=== PATIENT | female | born 1975 | race Caucasian/White ===

== ENCOUNTER 2017-10-03 21:30 | Observation (INO) ==
[2017-10-03 22:33] LABS: Basophils # 0.1 K/mcL (0.0-0.2); Basophils % 0.6 %; Eosinophils # 0.4 K/mcL (0.0-0.6); Eosinophils % 3.5 %; Hematocrit 40.9 % (35.3-44.9); Hemoglobin 14.5 g/dL (11.5-15.4); Immature Granulocytes % 0.4 % (0-4); Lymphocytes # 3.8 K/mcL (0.6-4.6); Lymphocytes % 29.9 %; Mean Corpuscular HGB Conc 35.5 g/dL (31.6-35.5); Mean Corpuscular Volume 90.3 fL (83.0-100.0); Mean Platelet Volume 10.7 fL (9.4-12.4); Monocytes # 0.9 K/mcL (0.0-1.3); Neutrophils # 7.4 K/mcL (1.6-8.9); Platelet Count 237 K/mcL (140-400); Red Blood Count 4.53 M/mcL (3.82-4.97); Red Cell Distribution Width 12.9 % (11.5-14.5); Segmented Neutrophils % 58.6 %
[2017-10-03 22:34] LABS: Bilirubin,Urine Negative (Negative); Blood,Urine Negative (Negative); Clarity,Urine Clear (Clear); Color,Urine Yellow (Yellow); Glucose,Urine (UA) Normal (Normal); Ketones,Urine Negative (Negative); Leukocyte Esterase,Urine Negative (Negative); Nitrite,Urine Negative (Negative); PH,Urine 6.5 pH Units (5.0-8.0); Protein,Urine Negative (Neg-Trace); Specific Gravity,Urine 1.027 (1.010-1.025); Urobilinogen,Urine Normal (Normal)
[2017-10-03 22:42] LABS: Alanine Aminotransferase 15 Units/L (7-52); Albumin 3.9 g/dL (3.5-5.7); Albumin/Globulin Ratio 1.6 (1.1-2.2); Alkaline Phosphatase 44 Units/L (34-104); Aspartate Amino Transferase 11 Units/L (13-39); BUN/Creatinine Ratio 23 (6-26); Bilirubin,Indirect 0.3 mg/dL (0.0-1.2); Bilirubin,Total 0.3 mg/dL (0.3-1.0); Blood Urea Nitrogen 17 mg/dL (6-20); Carbon Dioxide 26 mEq/L (23-29); Chloride 109 mEq/L (98-107); Globulin 2.4 g/dL (2.4-3.5); Glucose 93 mg/dL (70-105); Lipase 24 Units/L (11-82); Osmolality,Calculated 293 (280-300); Potassium 4.2 mEq/L (3.5-5.1); Sodium 141 mEq/L (136-145); Total Protein 6.3 g/dL (6.4-8.9); eGFR For African Americans > 60 (> 60); eGFR For Non-African Americans > 60 (> 60)
[2017-10-03] MEDS ORDERED: Isovue-370 500 ML INFUS..BTL IV ONE (22:51)
--- NOTE | 2017-10-03 22:55 | Emergency Department Note ---
Disposition Clinical Impression: Abdominal pain Disposition: Still a Patient Condition: Fair Referrals: Zoran Hadley, DECATOR OPERATOR [Primary Care Provider] - Abdominal Pain HPI - General Chief Complaint: ED Abdominal Pain Stated Complaint: Abdominal pain Time Seen by Provider: 10/03/17 21:40 Source: patient Mode of arrival: ambulatory Limitations: no limitations Nursing Notes Reviewed: Yes Vital Signs Reviewed: Yes - History of Present Illness HPI Narrative: 42-year-old female presents emergency Department with concerns of suprapubic and right lower quadrant abdominal pain. Patient states symptoms started within the past few days and have progressively worsened. Patient reports feeling nausea but has not had vomiting or diarrhea. She denies hematemesis, hematochezia or melena. No history of diverticulitis or colitis. No recent trauma. No changes in medications. No history of dysuria or hematuria. Denies vaginal bleeding or vaginal discharge. Patient is sexually active with one person and had last menstrual period 2 weeks ago. Pain Scale: 6 - Related Data Home Medications Medication Instructions Recorded Confirmed hydroCHLOROthiazide 12.5 mg PO QAM 11/16/15 04/15/16 [Hydrochlorothiazide] Previous Rx's Medication Instructions Recorded Amoxicillin/Clavulanate [Augmentin] 875 mg PO BID #20 tablet 05/23/16 Fexofenadine/Pseudoephedrine 1 each PO BID #8 tab.er.12h 05/23/16 [Nellie-D 12 Hour Tablet] Fluticasone Propionate Nasal 2 spray NS DAILY #1 bottle 05/23/16 [Flonase] Naproxen [Naprosyn] 500 mg PO BID #12 tablet 11/15/16 Allergies Allergy/AdvReac Type Severity Reaction Status Date / Time atorvastatin [From Lipitor] Allergy Muscle Pain Verified 11/15/16 16:15 levofloxacin [From Levaquin] Allergy Hives Verified 11/15/16 16:15 All systems ED: reviewed and negative except as stated. Review of Systems: As Per HPI Abdominal Pain PMH - Past Medical History Medical history: Reports: hyperlipidemia, hypertension Female Surgical History: Reports: sinus surgery PEST TECHNICIAN history: Reports: bilateral tubal ligation Psychiatric history: Reports: no psych history - Social History Smoking status: Current every day smoker Alcohol use: Reports: none Drug use: Reports: none Physical Exam General: Alert and in no acute distress Skin: Warm, dry, intact Head: Normocephalic and atraumatic Neck: Supple, trachea midline and no tenderness Cardiovascular: RRR, no murmur, normal perfusion Respiratory: CTAB, no wheezing, cough, or respiratory distress Musculoskeletal: Normal strength, no tenderness, swelling or deformity GI: Soft, moderate tenderness to palpation to the suprapubic region and the bilateral lower abdomen. No evidence of rigidity, guarding, or rebound nondistended. Bowel sounds present Neuro: A&O to person, place, time and situation. No focal deficits noted on exam Psychiatric: cooperative and appropriate mood and affect. - General Limitations: no limitations General appearance: alert, appears intoxicated Course Vital Signs Temperature 98.0 F 10/03/17 21:31 Pulse Rate 89 10/03/17 21:31 Respiratory Rate 16 10/03/17 21:31 Blood Pressure 142/99 10/03/17 21:31 O2 Sat by Pulse Oximetry 97 10/03/17 21:31 Temperature 98.0 F 10/03/17 21:53 Pulse Rate 85 10/03/17 22:23 Respiratory Rate 18 10/03/17 22:23 Blood Pressure 139/95 10/03/17 22:23 O2 Sat by Pulse Oximetry 99 10/03/17 22:23 Oxygen Delivery Oxygen Delivery Room Air Abdominal Pain - MDM Narrative Medical decision making narrative: Laboratory evaluation largely within normal limits other than a mild leukocytosis. Patient does not have a urinary tract infection or significant amount of blood in her urine. CT of the abdomen and pelvis obtained to evaluate for possible colitis versus appendicitis. Patient care will be transferred to Dr. Jarrett pending further care and evaluation, imaging, and disposition - Medical Records Medical records reviewed: Yes I reviewed the patient's medical records. - Lab Data Lab results reviewed: Yes I reviewed the patient's lab results. Result diagrams: 10/03/17 22:12 10/03/17 22:12 Lab Results 10/03/17 10/03/17 10/03/17 Range/Units 21:48 22:12 22:12 WBC 12.7 H (4.3-11.1) K/mcL RBC 4.53 (3.82-4.97) M/mcL Hgb 14.5 (11.5-15.4) g/dL Hct 40.9 (35.3-44.9) % MCV 90.3 (83.0-100.0) fL MCH 32.0 (28.0-33.3) pg MCHC 35.5 (31.6-35.5) g/dL RDW 12.9 (11.5-14.5) % Plt Count 237 (140-400) K/mcL MPV 10.7 (9.4-12.4) fL Immature Gran % 0.4 (0-4) % Seg Neutrophils % 58.6 % Lymphocytes % 29.9 % Monocytes % 7.0 % Eosinophils % 3.5 % Basophils % 0.6 % Neutrophils # 7.4 (1.6-8.9) K/mcL Lymphocytes # 3.8 (0.6-4.6) K/mcL Monocytes # 0.9 (0.0-1.3) K/mcL Eosinophils # 0.4 (0.0-0.6) K/mcL Basophils # 0.1 (0.0-0.2) K/mcL Sodium 141 (136-145) mEq/L Potassium 4.2 (3.5-5.1) mEq/L Chloride 109 H (98-107) mEq/L Carbon Dioxide 26 (23-29) mEq/L BUN 17 (6-20) mg/dL Creatinine 0.73 (0.60-1.20) mg/dL Est GFR ( Amer) > 60 (> 60) Est GFR (Non-Af Amer) > 60 (> 60) BUN/Creatinine Ratio 23 (6-26) Glucose 93 (70-105) mg/dL Calculated Osmolality 293 (280-300) Calcium 9.0 (8.6-10.3) mg/dL Total Bilirubin 0.3 (0.3-1.0) mg/dL Direct Bilirubin 0.0 (0.0-0.2) mg/dL Indirect Bilirubin 0.3 (0.0-1.2) mg/dL AST 11 L (13-39) Units/L ALT 15 (7-52) Units/L Alkaline Phosphatase 44 (34-104) Units/L Serum Total Protein 6.3 L (6.4-8.9) g/dL Albumin 3.9 (3.5-5.7) g/dL Globulin 2.4 (2.4-3.5) g/dL Albumin/Globulin Ratio 1.6 (1.1-2.2) Lipase 24 (11-82) Units/L Urine Color Yellow (Yellow) Urine Clarity Clear (Clear) Urine pH 6.5 (5.0-8.0) pH Units Ur Specific [place] 1.027 H (1.010-1.025) Urine Protein Negative (Neg-Trace) mg/dL Urine Glucose (UA) Normal (Normal) mg/dL Urine Ketones Negative (Negative) mg/dL Urine Blood Negative (Negative) Urine Nitrite Negative (Negative) Urine Bilirubin Negative (Negative) Urine Urobilinogen Normal (Normal) mg/dL Ur Leukocyte Esterase Negative (Negative) Ur Culture Indicated? NO (NO) - Radiology Data Radiology results reviewed: Yes I reviewed the patient's radiology results.
[2017-10-04] MEDS ORDERED: *HR* Morphine Immed Rel 30 MG TABLET PO ONE (01:20)
[2017-10-04] MEDS ORDERED: *HR* HYDROcodone/Acet 5/325 mg TABLET PO ONE (01:29)
[2017-10-04] MEDS ORDERED: Gadolinium Contrast Agent (WT Based) IV PRN (01:29)
[2017-10-04] MEDS ORDERED: 0.9 % Sodium Chloride 1,000 ML IVC SCH (01:30)
[2017-10-04] MEDS ORDERED: Acetaminophen 325 MG TABLET PO PRN (04:03)
[2017-10-04] MEDS ORDERED: Naloxone 0.4 MG/ML INJ IVP PRN (04:03)
[2017-10-04] MEDS ORDERED: Ondansetron 4 MG/2 ML VIAL IVP PRN (04:10)
[2017-10-04] MEDS ORDERED: Pantoprazole 40 MG VIAL IVP SCH (04:12)
--- NOTE | 2017-10-04 04:33 | Internal Med History&Physical ---
Date of Encounter: 10/04/17 Time of Encounter: 04:21 Internal Medicine - H&P: HPI Chief complaint: "Abdominal pain" Admitted From: Emergency Dept Plans for Post Hospital Care: Home History of present illness: Ms. Aguiar is a 42 year old female who presented to ED with abdominal pain. She states that the pain started a few days ago, but was worst today. She states that pain is located in RLQ and LLQ, near pelvis. The pain does not radiate anywhere. It is better sitting still; worse with palpation. She never had abdominal pain like this before. She denies fever, chills, chest pain, and SOB. Last CT was done about 6 months ago and showed some liver lesions and left adnexal lesion. Those lesions are more prominent on today's CT scan. Patient agreed to be admitted for workup of imaging findings and pain control. Pain relief was achieved in the ED with norco. She does not strong pain medicine. She states pain is better than when she came to ED. She is in no distress and has no complaints at this time. Past Med Surg Social Fam HX - Past Medical History Attestation: Yes The following information was validated with the patient. Medical history: hyperlipidemia, hypertension Psychiatric history: no psych history - Past Surgical History Surgical History: breast surgery - Social History Smoking Status: Current every day smoker Smokeless Tobacco Status: No Alcohol use: none Drug use: none - Additional Family History Additional family history: No family history per patient. Internal Medicine - H&P: Meds hydroCHLOROthiazide [Hydrochlorothiazide] 12.5 mg PO QAM 11/16/15 [History] Amoxicillin/Clavulanate [Augmentin] 875 mg PO BID #20 tablet 05/23/16 [Rx] Fexofenadine/Pseudoephedrine [Nellie-D 12 Hour Tablet] 1 each PO BID #8 tab.er.12h 05/23/16 [Rx] Fluticasone Propionate Nasal [Flonase] 2 spray NS DAILY #1 bottle 05/23/16 [Rx] Naproxen [Naprosyn] 500 mg PO BID #12 tablet 11/15/16 [Rx] 3 Allergy/AdvReac Type Severity Reaction Status Date / Time atorvastatin [From Lipitor] Allergy Muscle Pain Verified 11/15/16 16:15 levofloxacin [From Levaquin] Allergy Hives Verified 11/15/16 16:15 All Systems PM: A 10-system review of systems was performed and is negative for pertinent findings except as documented above in the HPI. - Constitutional Vitals: Temp Pulse Resp BP Pulse Ox 98.2 F 71 14 139/82 97 10/04/17 03:11 10/04/17 03:11 10/04/17 03:11 10/04/17 03:11 10/04/17 03:11 General appearance: Present: cooperative, mild distress (Due to adominal pain), A&O X 3, pleasant, answers questions appropriately - Head Head exam: Present: atraumatic, normal inspection, normocephalic - Eye Eye exam: Present: EOMI, normal appearance, PERRL. Absent: conjunctival injection, nystagmus, scleral icterus - ENT ENT exam: Present: mucous membranes moist, normal external ear exam, normal oropharynx - Neck Neck exam general surgery: Present: supple, trachea midline. Absent: lymphadenopathy, tenderness, thyromegaly - Respiratory Respiratory exam: Present: CTAB. Absent: accessory muscle use, rales, rhonchi, wheezes Additional comments: Normal WOB - Cardiovascular Cardiovascular exam: Present: RRR, +S1, +S2. Absent: diastolic murmur, gallop, rubs, systolic murmur - GI/Abdominal GI/Abdominal exam: Present: normal bowel sounds, soft. Absent: distended, guarding, mass, rebound - Extremities Exam Extremities exam: Present: full ROM, normal capillary refill, normal inspection. Absent: joint swelling, pedal edema, tenderness - Back Exam Back exam: Absent: CVA tenderness (L), CVA tenderness (R) - Neurological Exam Neurological exam: Present: abnormal gait, alert, CN II-XII intact, oriented X3 , strengths equal and symetr throughout. Absent: motor sensory deficit, no focal deficits, facial droop, speech deficit - Psychiatric Psychiatric exam: Present: normal affect, normal mood. Absent: agitated, anxious, depressed - Skin Skin exam: Present: dry, intact, warm. Absent: cyanosis, rash Internal Med - H&P Results - Labs CBC & Chem 7: 10/03/17 22:12 10/03/17 22:12 - Assessment and plan (1) Abdominal pain Current Visit: Yes Status: Acute Assessment and plan: Admit for observation and pain control. Keep NPO for now. Per patient's preference, we will use norco 5 mg Q6H PRN severe pain instead of IV opioids. Use zofran IV for nausea/vomiting control. Will order MRI liver to work up liver lesions. Consider GI consult based on MRI results. Will order pelvic ultrasound for left adnexal lesion. Consider COLLATOR HAND consult based on U/S results. After testing and possible consults are done, consider starting and advancing diet. Start protonix 40 mg IV QD for GI prophylaxis. Will keep on IV NS while NPO. She has history of chronic constipation for which she uses senna but she had large BM today; will maintain her bowel regimen with senna/ docusate since on opioids now. Will add PRN miralax. Qualifiers: Abdominal location: lower abdomen, unspecified Qualified Code(s): R10.30 - Lower abdominal pain, unspecified (2) Adnexal pain Current Visit: Yes Status: Acute Assessment and plan: Management as per above. (3) Liver lesion Current Visit: Yes Status: Acute Assessment and plan: Management as per above. (4) Nausea Current Visit: Yes Status: Acute Assessment and plan: Management as per above. (5) Chronic constipation Current Visit: Yes Status: Chronic Assessment and plan: Management as per above. (6) DVT prophylaxis Current Visit: Yes Status: Acute Assessment and plan: Start lovenox 40 mg SQ QD. - Time Spent With Patient Total time spent is greater than 50% in coordination of care (as documented) at patient's floor/unit and/or counseling patient: less than 15 minutes
[2017-10-04] MEDS: 0.9 % Sodium Chloride 1,000 ML IVC SCH ×2 (04:58→16:26)
[2017-10-04] MEDS: *HR* HYDROcodone/Acet 5/325 mg TABLET PO PRN ×2 (05:00→14:52)
[2017-10-04] MEDS ORDERED: *HR* Enoxaparin 40 MG/0.4 ML SYRINGE SQ SCH (06:00)
--- NOTE | 2017-10-04 06:15 | Emergency Department Note ---
START Narrative - START START: Received patient is sign out, ongoing abd pain, findings of pelvic as well as liver lesion, will admit for liver MRI and pelvic ultrasound as well as pain control.
[2017-10-04] MEDS ORDERED: Sennosides/Docusate Sodium TABLET PO SCH (09:00)
[2017-10-04] MEDS ORDERED: GADOXETATE DISODIUM 2.5 MMOL/10 ML VIAL IV ONE (11:16)
--- NOTE | 2017-10-04 13:24 | Internal Med Progress Note ---
Date of Encounter: 10/04/17 Time of Encounter: 13:22 - Assessment and plan (1) Abdominal pain Current Visit: Yes Status: Acute Assessment and plan: Admit for observation and pain control. Keep NPO for now. Per patient's preference, we will use norco 5 mg Q6H PRN severe pain instead of IV opioids. Use zofran IV for nausea/vomiting control. Will order MRI liver to work up liver lesions. Consider GI consult based on MRI results. Will order pelvic ultrasound for left adnexal lesion. Continue protonix 40 mg IV QD for GI prophylaxis. Will keep on IV NS while NPO. She has history of chronic constipation for which she uses senna but she had large BM today; will maintain her bowel regimen with senna/docusate add prn miralax. Will add PRN miralax. Patient states she has PCOS which could be contributing to symptoms. NPO until ultrasound Advance diet after ultrasound If ultrasound has positive findings, will consulted Gynecology. Qualifiers: Abdominal location: lower abdomen, unspecified Qualified Code(s): R10.30 - Lower abdominal pain, unspecified (2) Adnexal pain Current Visit: Yes Status: Acute Assessment and plan: Management as per above. (3) Nausea Current Visit: Yes Status: Acute Assessment and plan: Currently resolved (4) Liver lesion Current Visit: Yes Status: Acute Assessment and plan: MRI shows liver lesions noted to likely be cysts. Suggest OP follow-up. Patient has no RUQ symptoms. (5) DVT prophylaxis Current Visit: Yes Status: Acute Assessment and plan: Start lovenox 40 mg SQ QD. (6) Chronic constipation Current Visit: Yes Status: Chronic Assessment and plan: Continue medications - Time Spent With Patient Total time spent is greater than 50% in coordination of care (as documented) at patient's floor/unit and/or counseling patient: - Subjective Interval history: No acute events. Abdominal pain is now 4/10 only located in RLQ and LLQ. Denies fevers/chills, n/v. Appetite is good pt wants to eat. - Constitutional Vitals: Temp Pulse Resp BP Pulse Ox 98.2 F 58 16 133/74 98 10/04/17 11:27 10/04/17 11:27 10/04/17 11:27 10/04/17 11:27 10/04/17 11:27 General appearance: Present: cooperative, mild distress (Due to adominal pain), A&O X 3, pleasant, answers questions appropriately - Head Head exam: Present: atraumatic, normocephalic - Eye Eye exam: Present: PERRL, conjuntiva pink, sclera anicteric Pupils: Present: PERRL - Neck Neck exam general surgery: Present: supple, trachea midline. Absent: lymphadenopathy - Respiratory Respiratory exam: Present: CTAB. Absent: accessory muscle use, rales, rhonchi, wheezes - Cardiovascular Cardiovascular exam: Present: RRR, +S1, +S2. Absent: diastolic murmur, gallop, rubs, systolic murmur - GI/Abdominal GI/Abdominal exam: Present: normal bowel sounds, soft, tenderness (RLQ and LLQ) , no peritoneal signs. Absent: distended - Extremities Exam Extremities exam: Present: warm, radial pulses palpable and symmetrical. Absent : calf tenderness, cyanotic, pedal edema - Neurological Exam Neurological exam: Present: CN II-XII intact, oriented X3, no focal deficits. Absent: pronater drift, facial droop, speech deficit - Skin Skin exam: Present: dry, intact Internal Medicine: Result - Labs CBC & Chem 7: 10/03/17 22:12 10/03/17 22:12 Consult Discharge Plan - Plan Referrals: Zoran Hadley PAN RECLAIM PROCESSOR [Primary Care Provider] -
[2017-10-04 14:56] VITALS: BP 116/73
--- NOTE | 2017-10-04 18:45 | Discharge Summary ---
- NOTES TO OUTPATIENT PROVIDER Notes to Outpatient Provider: - Follow-up if liver lesions need further monitoring or interventions. - Follow-up if patient should be seen by Gynecology. - Repeat transvaginal ultrasound recommended in 6-12 weeks. - Repeat follow-up ultrasound of liver in 6 months. Orders not resulted at time of discharge: Pending orders 10/05/17 04:00 Basic Metabolic Panel AM 0400 Complete Blood Count [HEME] AM 0400 Date of Encounter: 10/04/17 Time of Encounter: 18:42 - Discharge Diagnosis (1) Abdominal pain Priority: Primary Status: Acute Qualifiers: Abdominal location: lower abdomen, unspecified Qualified Code(s): R10.30 - Lower abdominal pain, unspecified (2) Adnexal pain Priority: Secondary Status: Acute (3) Nausea Priority: Secondary Status: Acute (4) Liver lesion Priority: Secondary Status: Acute (5) DVT prophylaxis Priority: Secondary Status: Acute (6) Chronic constipation Priority: Secondary Status: Chronic Hospital course: Ms. Aguiar is a 42 year old female who presented to ED with abdominal pain. She states that the pain started a few days ago, but was worst today. She states that pain is located in RLQ and LLQ, near pelvis. The pain does not radiate anywhere. It is better sitting still; worse with palpation. She never had abdominal pain like this before. She denies fever, chills, chest pain, and SOB. Last CT was done about 6 months ago and showed some liver lesions and left adnexal lesion. Those lesions are more prominent on today's CT scan, otherwise did not have any findings to explain patient's lower abdominal quadrant pain. Patient agreed to be admitted for workup of imaging findings and pain control. Pain relief was achieved in the ED with [place]. She does not strong pain medicine. She states pain is better than when she came to ED. She is in no distress and has no complaints at this time. She had an abdominal MRI to evaluate liver lesions and showed 2 left hepatic lesions measuring up to 1.1 cm that were read as likely cysts. Transvaginal ultrasound was done showing a mass in left overy that could be a hemorrhagic cyst or endometrioma. Per radiology read, it was recommended for 6-12 week re evaluation. Patient's pain improved, nausea resolved. She was able to tolerate diet. She was discharged home in stable condition with prn [place] for 3 days with close follow-up with primary care physician. - Time Spent with Patient Total time spent providing and/or coordinating discharge services: - Discharge Medications Prescriptions: HYDROcodone/Acet 5/325 mg [[place] 5-325 mg] 1 tab PO Q6HR PRN 3 Days #12 tablet PRN Reason: Severe Pain Home Medications: Ergocalciferol (VITAMIN D2) [Vitamin D2] 50,000 unit PO QWEEK 10/04/17 [History] HYDROcodone/Acet 5/325 mg [[place] 5-325 mg] 1 tab PO Q6HR PRN 3 Days #12 tablet 10/04/17 [Rx] Rosuvastatin Calcium 20 mg PO DAILY 10/04/17 [History] Allergies/Adverse Reactions: 3 Allergy/AdvReac Type Severity Reaction Status Date / Time atorvastatin [From Lipitor] Allergy Muscle Pain Verified 11/15/16 16:15 levofloxacin [From Levaquin] Allergy Hives Verified 11/15/16 16:15 Date of admission: 10/04/17 01:42 Primary care physician: Zoran Hadley ECONOMICS FACULTY MEMBER Discharging clinician: Matt Luis - Constitutional Vitals: Temp Pulse Resp BP Pulse Ox 97.9 F 66 15 116/73 98 10/04/17 14:50 10/04/17 14:50 10/04/17 14:50 10/04/17 14:50 10/04/17 14:50 General appearance: Present: cooperative, mild distress (Due to adominal pain), A&O X 3, pleasant, answers questions appropriately - Head Head exam: Present: atraumatic, normocephalic - Eye Eye exam: Present: PERRL, conjuntiva pink, sclera anicteric Pupils: Present: PERRL - Neck Neck exam general surgery: Present: supple, trachea midline. Absent: lymphadenopathy - Respiratory Respiratory exam: Present: CTAB. Absent: accessory muscle use, rales, rhonchi, wheezes - Cardiovascular Cardiovascular exam: Present: RRR, +S1, +S2. Absent: diastolic murmur, gallop, rubs, systolic murmur - GI/Abdominal GI/Abdominal exam: Present: normal bowel sounds, soft, no peritoneal signs. Absent: distended, tenderness - Extremities Exam Extremities exam: Present: warm, radial pulses palpable and symmetrical. Absent : calf tenderness, cyanotic, pedal edema - Neurological Exam Neurological exam: Present: CN II-XII intact, oriented X3, no focal deficits. Absent: pronater drift, facial droop, speech deficit - Skin Skin exam: Present: dry, intact - Patient Status Disposition: Home, Self-Care Condition: Fair Functional capacity at discharge: independent ambulation Overall status at discharge: patient is progressing back to baseline - Discharge Instructions Follow Up With: Zoran Hadley, ECONOMICS FACULTY MEMBER [Primary Care Provider] - - Diet and Activity Activity: increase activity as tolerated Diet: advance to your usual diet
== END 2017-10-04 19:18 | disposition home or self-care (01) ==
LOC: EMEROO 21:30 → 3ANU 21:30 → SUATTDRO 10-04 01:42 → 3ANU 10-04 02:15
PROVIDERS: ADMIT Family Medicine; ATTEND Student in an Organized Health Care Education/Training Program